=== PATIENT | female | born 1975 ===

== ENCOUNTER 2022-07-01 10:17 | Emergency (ER) | payer OTHER ==
[2022-07-01] MEDS ORDERED: SODIUM CHLORIDE 0.9% 500 ML INFUS.BAG IV ONE (10:25)
[2022-07-01] MEDS ORDERED: ACETAMINOPHEN 1000 MG/100 ML BAG IVPB ONE (10:27)
[2022-07-01] MEDS ORDERED: ACETAMINOPHEN INJECTION 100 ML IVPB ONE (10:36)
[2022-07-01 10:49] VITALS: RESP 16; TEMP 99.1; BMI 23.8
[2022-07-01 11:26] LABS: ALBUMIN 4.6 g/dl (3.4-5.0); ALK PHOS 52 U/L (45-117); ANION GAP 11 MMOL/L (8-16); BILIRUBIN,TOTAL 0.8 mg/dl (0.2-1); CHLORIDE 99 mmol/L (98-107); CO2 24 mmol/L (21-32); CREATININE 0.7 mg/dl (0.55-1.3); GLUCOSE,RANDOM 102 mg/dl (74-106); HEMATOCRIT 42.5 % (32.4-45.2); HEMOGLOBIN 14.7 G/dL (10.7-15.3); MCH 29.6 pg (25.7-33.7); MCHC 34.7 g/dl (32.0-36.0); MEAN CELL VOLUME 85.5 fl (80-96); MEAN PLT VOLUME 7.9 fl (7.5-11.1); PLATELET COUNT 451.7 10^3/uL (134-434); RBC 4.97 10^6/uL (3.60-5.2); RDW 15.4 % (11.6-15.6); SGOT/AST 17 U/L (15-37); SGPT/ALT 10 U/L (13-61); SODIUM 134 mmol/L (136-145); TOT PROT 7.7 g/dl (6.4-8.2); WHITE BLOOD COUNT 10.4 10^3/uL (4.0-10.8)
[2022-07-01 12:09] LABS: PLATELET ESTIMATE SLT INCREASE
[2022-07-01 12:11] LABS: EPITHELIAL CELLS MANY /hpf
[2022-07-01 12:52] LABS: LIPASE 100 U/L (73-393)
[2022-07-01 13:29] VITALS: BP 122/81; PULSE 63
== END 2022-07-01 13:52 | disposition home or self-care (01) ==
LOC: FER 10:17
PROC: 3E0333Z Introduction of Anti-inflammatory into Peripheral Vein, Percutaneous Approach (ICD-10-PCS; principal; 2022-07-01)
DX: R10.9 Unspecified abdominal pain (principal)
CPT/HCPCS: 36415; 74176-TC; 76705-TC; 80053; 81003; 81015; 81025; 83690; 84702; 85027; 96374; 99285-25

== ENCOUNTER 2022-09-07 10:41 | Day surgery (SDC) | payer OTHER ==
[2022-09-03 11:45] VITALS: BMI 23.8
[2022-09-07 12:57] VITALS: RESP 18
[2022-09-07 13:52] VITALS: PULSE 82
[2022-09-07 13:53] VITALS: BP 110/70; TEMP 97
== END 2022-09-07 13:46 | disposition home or self-care (01) ==
LOC: FASU-ENDO 10:41
PROVIDERS: ATTEND Internal Medicine Gastroenterology
PROC: 0DJD8ZZ Inspection of Lower Intestinal Tract, Via Natural or Artificial Opening Endoscopic (ICD-10-PCS; principal; 2022-09-07 12:35)
DX: Z12.11 Encounter for screening for malignant neoplasm of colon (principal)
CPT/HCPCS: 84703